=== PATIENT | female | born 1990 | race Native Hawaiian/Other Pacific Islander ===

== ENCOUNTER 2021-03-30 09:21 | Emergency (ER) | payer OTHER ==
[~2021-03-30] VITALS: Ht 180.3 cm; Wt 85.7 kg
[2021-03-30 10:01] VITALS: TEMP 97.1
[2021-03-30 11:03] LABS: PLATELET COUNT 286 K/uL (152-353)
[2021-03-30 11:07] LABS: POTASSIUM 4.5 mmol/L (3.6-5.2)
[2021-03-30 12:58] VITALS: BP 124/78
== END 2021-03-30 12:58 | disposition home or self-care (01) ==
LOC: ED 09:21
PROVIDERS: Family Medicine
DX: K52.89 Other specified noninfective gastroenteritis and colitis (principal); E86.0 Dehydration; Z20.822 Contact with and (suspected) exposure to COVID-19
CPT/HCPCS: 80053; 81000; 85027; 87088; 87502; 87635; 96360; 96375; 99284; J2405; U0003

== ENCOUNTER 2021-10-23 17:28 | Emergency (ER) | payer OTHER ==
[~2021-10-23] VITALS: Ht 180.3 cm; Wt 85.7 kg
[2021-10-23 18:50] LABS: PLATELET COUNT 318 K/uL (152-353)
[2021-10-23 18:58] LABS: POTASSIUM 3.5 mmol/L (3.6-5.2)
[2021-10-23 19:18] LABS: PARTIAL THROMBOPLASTIN TIME 24.5 SECONDS (24.5-33.6)
[2021-10-23 23:36] VITALS: BP 111/68; TEMP 97.9
== END 2021-10-23 23:36 | disposition home or self-care (01) ==
LOC: ED 17:28
PROVIDERS: Emergency Medicine
DX: S20.211A Contusion of right front wall of thorax, initial encounter (principal); S40.022A Contusion of left upper arm, initial encounter; S13.4XXA Sprain of ligaments of cervical spine, initial encounter; R51.9 Headache, unspecified; V53.5XXA Driver of pick-up truck or van injured in collision with car, pick-up truck or van in traffic accident, initial encounter; Y92.488 Other paved roadways as the place of occurrence of the external cause
CPT/HCPCS: 36415; 80048; 85027; 85610; 85730; 93005; 96374; 99284; J1885

== ENCOUNTER 2023-01-02 20:11 | Emergency (ER) | payer BC ==
[~2023-01-02] VITALS: Ht 182.9 cm; Wt 98.9 kg
[2023-01-02 20:20] VITALS: TEMP 97.9
[2023-01-02 21:33] LABS: PLATELET COUNT 336 K/uL (152-353)
[2023-01-02 22:01] LABS: POTASSIUM 3.2 mmol/L (3.6-5.2)
[2023-01-03 03:15] VITALS: BP 102/44
== END 2023-01-03 03:15 | disposition home or self-care (01) ==
LOC: ED 20:11
PROVIDERS: Emergency Medicine Emergency Medical Services
DX: K52.89 Other specified noninfective gastroenteritis and colitis (principal); E87.6 Hypokalemia; F17.210 Nicotine dependence, cigarettes, uncomplicated
CPT/HCPCS: 36415; 80053; 81002; 81025; 85027; 85610; 87040; 96361; 96365; 96366; 96375; 99284; J1885; J1956; J2270; J2405; Q9963